=== PATIENT | male | born 1975 | race Asian ===

== ENCOUNTER 2017-08-11 14:30 | Emergency (ER) | payer MEDICAID, OTHER ==
[~2017-08-11] VITALS: Ht 175.3 cm; Wt 74.8 kg
[~2017-08-11 14:30] MED LIST: CO Q-1010 MG PO; FISH OIL300 M1 PO; MULTIVITAMINS1 EAC2 ORAL
--- NOTE | 2017-08-11 15:42 | Diagnostic Imaging Report ---
Indication: Pain Technique: XRAY Ankle Compl Min 3v L Comparison: None Findings: There is no acute fracture. A well-corticated ossific density projecting just. The tip of the medial malleolus may represent sequela of remote trauma or accessory ossicle. The ankle mortise is intact on these nonstressed views. There is no significant ankle joint effusion. No radiopaque foreign body seen. Impression: No acute fracture or dislocation.
--- NOTE | 2017-08-11 15:51 | Emergency Room Report ---
History of Present Illness General Chief Complaint: Pain Present Illness HPI 42 YO Male presents to the ED C/O pain upon walking x 3 month s/p base ball sliding injury.Denies numbness tingling or loss of sensation or gross motor movements of the extremities, incontinence of bowel or bladder. Denies CP, Palpitations, LOC, AMS, dizziness, Changes in Vision, Sensation, paresthesias, or a sudden severe headache. Allergies: Coded Allergies: NO KNOWN DRUG ALLERGIES (Verified Allergy, 07/27/13) Patient History Past Medical History: see triage record Past Surgical History: none Pertinent Family History: none Reviewed Nursing Documentation: PMH: Agreed, PSxH: Agreed Nursing Documentation-PMH Hx Cancer: No Hx Neurological Problems: Yes - HEADACHES Review of Systems All Other Systems: negative except mentioned in HPI Physical Exam Vital Signs Date Time Temp Pulse Resp B/P (MAP) Pulse Ox O2 Delivery O2 Flow Rate FiO2 08/11/17 14:34 97.5 83 20 123/76 99 Room Air Sp02 EP Interpretation: reviewed, normal General Appearance: no apparent distress, alert, GCS 15, non-toxic Head: normocephalic, atraumatic Eyes: bilateral eye normal inspection, bilateral eye PERRL ENT: hearing grossly normal, normal voice Neck: full range of motion Respiratory: lungs clear, normal breath sounds, speaking full sentences Cardiovascular #1: regular rate, rhythm, no edema, normal capillary refill Rectal: deferred Genitourinary: normal inspection Musculoskeletal: back normal, gait/station normal, normal range of motion, tender - TTP to the anterior/dorsum of the left ankle, negative calf squeeze, FROM with pain, NVI, no bruises or obvious deformities. Neurologic: alert, oriented x3, responsive, motor strength/tone normal, sensory intact, speech normal, grossly normal Psychiatric: judgement/insight normal Skin: normal color, no rash, warm/dry, well hydrated Lymphatic: no adenopathy Medical Decision Making PA Attestation Dr. giles is my supervising Physician whom patient management has been discussed with. Diagnostic Impression: Primary Impression: Foot fracture, left Qualified Codes: S92.902A - Unspecified fracture of left foot, initial encounter for closed fracture Additional Impression: Avulsion fracture of calcaneus with delayed healing Qualified Codes: S92.035G - Nondisplaced avulsion fracture of tuberosity of left calcaneus, subsequent encounter for fracture with delayed healing ER Course 42 YO Male presents to the ED C/O 03/11 in severity pain to the left ankle upon walking x 3 months s/p base ball sliding injury. Denies numbness tingling or loss of sensation or gross motor movements of the extremities, incontinence of bowel or bladder. Denies CP, Palpitations, LOC, AMS, dizziness, Changes in Vision, Sensation, paresthesias, or a sudden severe headache. Ddx considered but are not limited to Fracture, dislocation, contusion, Sprain/ Strain/Spasm, avulsion fx. Vital signs: are WNL, pt. is afebrile H&PE are most consistent with musculoskeletal injury will perform imaging to r/ o fractures/dislocations. ORDERS: - X-ray Left Ankle 3 views - POSITIVE FOR OLD FRACTURES to the 1st and second metatarsals, and avulsion of the tibia, no acute fractures, Dislocation , or significant soft tissue injury, per preliminary read in ED, and signed by LAMONT Nielsen, my supervising physician has reviewed, and agrees with my interpretation. ED INTERVENTIONS: -Ortho Cast shoe applied by install technician. Pt. remains neurovascularly intact. -Patient is provided with crutches and instructed on their use --Patient is given copies of his x-rays. Discussed with patient that he needs to followup with edi specialist, and he may even require MRI as well this will be evaluated for by his primary care or edi specialist. DISCHARGE: At this time pt. is stable for d/c to home. Will provide printed patient care instructions, and any necessary prescriptions. Care plan and follow up instructions have been discussed with the patient prior to discharge. Other X-Ray Diagnostic Results Other X-Ray Diagnostic Results : X-Ray ordered: Left Ankle # of Views/Limited Vs Complete: 3 View Indication: Pain EP Interpretation: Yes PA Xray: Interpretation reviewed, by supervising MD, and agrees with findings. Interpretation: no dislocation, no soft tissue swelling, other - no acute fractures, evidence of old fractures with poor healing/malunion. Impression: Other - POSITIVE FOR OLD FRACTURES to the 1st and second metatarsals, and avulsion of the tibia, no acute fractures, Dislocation, or significant soft tissue injury, Electronically Signed by: Elida Nielsen PA-c Last Vital Signs Date Time Temp Pulse Resp B/P (MAP) Pulse Ox O2 Delivery O2 Flow Rate FiO2 1/10/18 14:34 97.5 83 20 123/76 99 Room Air Disposition: HOME, SELF-CARE Condition: Stable Scripts Acetaminophen With Codeine (T#3) (TYLENOL #3 TAB*) Y Tab 1 TAB ORAL Q6HR Y for For Pain, #10 TAB Prov: Elida Nielsen 08/11/17 Ibuprofen* (MOTRIN*) 600 Mg Tablet 600 MG ORAL THREE TIMES A DAY, #30 TAB 0 Refills Prov: Elida Nielsen 08/11/17 Referrals: NOT CHOSEN [facility],REFERRING (PCP) Patient Instructions: Ankle Fracture, [id number], Avulsion Fracture of the Foot Additional Instructions: Take medications as directed. Follow up with a Primary Care Provider For [facility]FERR[facility] in 3-5 days, even if your symptoms have resolved. --Please review list of primary care clinics, if you do not already have a primary care provider MRI may be necessary if symptoms continue, follow up with PCP/ORTHO for this referral. Return sooner to ED if new symptoms occur, or current symptoms become worse. Do not drink alcohol, drive, or operate heavy machinery while taking Tylenol #3 as this may cause drowsiness. - Please note that this Emergency Department Report was dictated using [employer] assistant director technology software, occasionally this can lead to erroneous entry secondary to interpretation by the dictation equipment. Elida Nielsen Aug 11, 2017 15:51
[2017-08-11] MEDS ORDERED: IBUPROFEN600 MG ORAL (15:56)
[2017-08-11] MEDS ORDERED: ACETAMINOPHEN-1 EAC1 ORAL (15:56)
[2017-08-11 16:20] VITALS: BP 120/71
== END 2017-08-11 16:20 | disposition home or self-care (01) ==
LOC: EMR 14:40
DX: S92.002G Unspecified fracture of left calcaneus, subsequent encounter for fracture with delayed healing (principal); Y93.64 Activity, baseball
CPT/HCPCS: 99284

== ENCOUNTER 2018-06-19 22:05 | Emergency (ER) | payer MEDICAID ==
[~2018-06-19] VITALS: Ht 175.3 cm; Wt 74.8 kg
[~2018-06-19 22:05] MED LIST changes: +ACETAMINOPHEN-1 EAC1 ORAL; +IBUPROFEN600 MG ORAL
[2018-06-19 22:20] VITALS: BP 110/82
--- NOTE | 2018-06-19 22:34 | Emergency Room Report ---
History of Present Illness General Chief Complaint: Nausea, Vomiting, and Diarrhea Source: Patient Present Illness HPI Is a 43-year-old male with no past medical history. He presents with chief complaint abdominal pain with nausea vomiting and diarrhea. Onset was 5 days ago. He said he ate some old chicken in the fridge. The next day he had profuse diarrhea while at work and at home. He took some Imodium and I got better. Since then he has nausea and today has been persistent vomiting. His pain is epigastric area. No fever or chills. Vomiting is nonbloody nonbilious. [place] weak and tired. Sleeping a lot. Denies any sick contact. Nothing made it better. Eating and drinking makes it worse. Allergies: Coded Allergies: NO KNOWN DRUG ALLERGIES (Verified Allergy, 07/27/13) Patient History Past Medical History: see triage record, old chart reviewed Past Surgical History: none Pertinent Family History: none Social History: Denies: smoking Immunizations: other Reviewed Nursing Documentation: PMH: Agreed; PSxH: Agreed Nursing Documentation-PMH Past Medical History: No Stated History Hx Cancer: No Hx Neurological Problems: Yes - HEADACHES Review of Systems Constitutional: Reports: weakness Eye: Denies: eye pain, blurred vision ENT: Denies: ear pain, nose congestion, throat swelling Respiratory: Denies: cough, shortness of breath Cardiovascular: Denies: chest pain, palpitations Gastrointestinal: Reports: abdominal pain, diarrhea, nausea, vomiting Musculoskeletal: Denies: back pain, joint pain Skin: Denies: rash Neurological: Denies: headache, numbness Endocrine: Denies: increased thirst, increased urine Hematologic/Lymphatic: Denies: easy bruising All Other Systems: negative except mentioned in HPI Physical Exam Vital Signs Date Time Temp Pulse Resp B/P (MAP) Pulse Ox O2 Delivery O2 Flow Rate FiO2 06/19/18 22:09 98.2 72 16 116/80 99 Room Air vitals normal Sp02 EP Interpretation: reviewed, normal General Appearance: well appearing, no apparent distress, alert Head: normocephalic, atraumatic Eyes: bilateral eye PERRL, bilateral eye EOMI ENT: hearing grossly normal, normal pharynx Neck: full range of motion, supple, no meningismus Respiratory: chest non-tender, lungs clear, normal breath sounds Cardiovascular #1: regular rate, rhythm, no murmur Gastrointestinal: normal bowel sounds, non tender, no mass, no organomegaly, no bruit, non-distended Musculoskeletal: back normal, gait/station normal, normal range of motion Psychiatric: mood/affect normal Skin: warm/dry Medical Decision Making Diagnostic Impression: Primary Impression: Nausea, vomiting, and diarrhea ER Course With nausea vomiting diarrhea. This is most likely an acute gastroenteritis rather than food poisoning since been gone for a few days. He said she doing well. Did not want IV fluid or medication. We'll discharge home. No evidence of an acute abdomen. No evidence of any obstruction. Lab Results Impression labs normal Last Vital Signs Date Time Temp Pulse Resp B/P (MAP) Pulse Ox O2 Delivery O2 Flow Rate FiO2 06/19/18 22:09 98.2 72 16 116/80 99 Room Air Status: improved Disposition: HOME, SELF-CARE Condition: Stable Scripts Ondansetron (Zofran) 4 Mg Tablet 4 MG ORAL Q6H PRN for Nausea & Vomiting, #10 TAB 0 Refills Prov: Juan C Stevens MD 06/19/18 Referrals: [facility],REFERRING (PCP) Additional Instructions: Advance diet slowly. Increase fluid. Follow-up with your Dr. in 2 to 3 days if not better. Return if worse. Juan C Stevens MD Jun 19, 2018 22:34
[2018-06-19] MEDS ORDERED: Ketorolac 30mg Inj IV ONE (22:45)
[2018-06-19 22:57] LABS: APPEARANCE,URINE CLEAR; BILIRUBIN, URINE NEGATIVE (NEGATIVE); COLOR,URINE PALE YELLOW; GLUCOSE, URINE (UA) NEGATIVE (NEGATIVE); KETONES,URINE NEGATIVE (NEGATIVE); LEUKOCYTE ESTERASE ,URINE NEGATIVE (NEGATIVE); NITRITE,URINE NEGATIVE (NEGATIVE); PH,URINE 7 (4.5-8.0); PROTEIN,URINE NEGATIVE (NEGATIVE); UROBILINOGEN,URINE NORMAL MG/DL (0.0-1.0)
[2018-06-19 22:58] LABS: BASOPHILS % (AUTO) 0.7 % (0.0-2.0); EOSINOPHILS % (AUTO) 1.3 % (0.0-3.0); HEMATOCRIT 40.6 % (42.0-52.0); HEMOGLOBIN 14.8 G/DL (14.2-18.0); MEAN CORPUSCULAR VOLUME 90 FL (80-99); NEUTROPHILS % (AUTO) 65.1 % (45.0-75.0); PLATELET COUNT 285 K/UL (150-450); RED BLOOD COUNT 4.51 M/UL (4.70-6.10); RED CELL DISTRIBUTION WIDTH 10.5 % (11.6-14.8); WHITE BLOOD COUNT 7.8 K/UL (4.8-10.8)
[2018-06-19 23:08] LABS: ANION GAP 7 mmol/L (5-15); BLOOD UREA NITROGEN 12 mg/dL (7-18); CALCIUM 8.8 MG/DL (8.5-10.1); CARBON DIOXIDE 30 MMOL/L (21-32); CHLORIDE 102 MMOL/L (98-107); CREATININE 0.9 MG/DL (0.55-1.30); POTASSIUM 3.7 MMOL/L (3.5-5.1); SODIUM 139 MMOL/L (136-145)
[2018-06-19 23:13] LABS: ALANINE AMINOTRANSFERASE 58 U/L (12-78); ALBUMIN 3.8 G/DL (3.4-5.0); ASPARTATE AMINO TRANSFERASE 29 U/L (15-37); BILIRUBIN,TOTAL 0.7 MG/DL (0.2-1.0)
[2018-06-19 23:14] LABS: ALBUMIN/GLOBULIN RATIO 0.9 (1.0-2.7); ALKALINE PHOSPHATASE 68 U/L (46-116)
[2018-06-19 23:43] VITALS: BP 110/59
[2018-06-19 23:44] VITALS: BP 110/53
[2018-06-19] MEDS ORDERED: ZOFRAN4 MG ORAL (23:44)
== END 2018-06-19 23:52 | disposition home or self-care (01) ==
LOC: EMR 22:28
DX: R11.2 Nausea with vomiting, unspecified (principal); R19.7 Diarrhea, unspecified; R10.13 Epigastric pain
CPT/HCPCS: 36415; 80053; 81003; 83690; 85025; 99283; J2405

== ENCOUNTER 2019-09-17 23:24 | Emergency (ER) | payer SELFPAY ==
[~2019-09-17] VITALS: Ht 172.7 cm; Wt 74.8 kg
[~2019-09-17 23:24] MED LIST changes: +ZOFRAN4 MG ORAL
[2019-09-17 23:50] VITALS: BP 129/81
--- NOTE | 2019-09-17 23:50 | NUR ---
ED Nurse Note: Pt walke din to ED c/o left calf pain started today at 0900. Stated that he was playing baseball and running at onset of pain. Pt was able to walk but with limitation.
[2019-09-18] MEDS ORDERED: IBUPROFEN600 MG ORAL (00:45)
[2019-09-18 00:50] VITALS: BP 129/81
--- NOTE | 2019-09-18 00:50 | NUR ---
ED Nurse Note: Pt cleared by ERMD for discharge. DC instructions/prescription was given and explained to pt and verbalized understanding of teachings. All medical deviecs such as ID band removed. Pt is AAO x4, ambulatory and left with all personal belongings. Crutches provided.
--- NOTE | 2019-09-18 04:32 | Emergency Room Report ---
History of Present Illness General Chief Complaint: Pain Source: Patient Present Illness HPI 44-year-old male presents ED complaining of left calf pain. Started yesterday morning while he played baseball. Days while running he felt a pop in his left calf. States he has been having intense pain since. 9 out of 10, throbbing, nonradiating. Has been icing it. Has difficulty walking. Denies any other injuries. No other aggravating relieving factors. Denies any other associated symptoms Allergies: Coded Allergies: NO KNOWN DRUG ALLERGIES (Verified Allergy, 07/27/13) Patient History Past Medical History: none Past Surgical History: none Pertinent Family History: none Social History: Denies: smoking, alcohol use, drug use Immunizations: UTD Reviewed Nursing Documentation: PMH: Agreed; PSxH: Agreed Nursing Documentation-PMH Past Medical History: No History, Except For Hx Cancer: No Hx Neurological Problems: Yes - HEADACHES Review of Systems All Other Systems: negative except mentioned in HPI Physical Exam Vital Signs Date Time Temp Pulse Resp B/P (MAP) Pulse Ox O2 Delivery O2 Flow Rate FiO2 09/17/19 23:45 97.9 65 14 129/81 (97) 98 Room Air Sp02 EP Interpretation: reviewed, normal General Appearance: no apparent distress, alert, GCS 15, non-toxic Head: normocephalic Eyes: bilateral eye normal inspection, bilateral eye PERRL ENT: normal ENT inspection Neck: normal inspection Respiratory: normal inspection Cardiovascular #1: normal inspection Gastrointestinal: normal inspection Rectal: deferred Genitourinary: no CVA tenderness Musculoskeletal: calf tenderness - LEFT, other - negative simon sign Neurologic: alert, motor strength/tone normal, oriented x3, sensory intact, responsive, speech normal Psychiatric: normal inspection Skin: no rash Lymphatic: normal inspection Procedures Splinting Splinting : Consent: Verbal Pre-Made Type: crutches Pre-Proc Neuro Vasc Exam: normal Post-Proc Neuro Vasc Exam: normal Patient Tolerated: Well Complications: None Medical Decision Making Diagnostic Impression: Primary Impression: Injury of calf ER Course Hospital Course 44 yo M presents with calf pain s/p running Differential diagnoses include: Fracture, dislocation, sprain, contusion, bursitis Clinical course Patient placed on stretcher. After initial history, physical exam reveals a male in no acute distress. On exam there is tenderness to the left calf. Swollen compared to the right. Negative Calvin test. No bony tenderness. Distal pulses intact. Sensations intact I discussed findings with patient. No sign of Achilles injury. Likely muscular. Given Motrin in ED. Given crutches. Will discharge to home. Nonweightbearing. I will provide Ortho referrals Diagnosis - injury of calf stable and discharged to home with prescription for Motrin. Followup with PMD/ ortho. Return to ED if symptoms recur or worsen Last Vital Signs Date Time Temp Pulse Resp B/P (MAP) Pulse Ox O2 Delivery O2 Flow Rate FiO2 09/18/19 00:50 97.9 65 14 129/81 98 Room Air Status: improved Disposition: HOME, SELF-CARE Condition: Stable Scripts Ibuprofen* (MOTRIN*) 600 Mg Tablet 600 MG ORAL Q8H PRN for For Pain, #30 TAB 0 Refills Prov: Jack Ugalde MD 09/18/19 Referrals: Earle Wills MD NOT CHOSEN [facility]/,REFERRING (PCP) Patient Instructions: Muscle Strain, [id number] Jack Ugalde MD Sep 18, 2019 04:32
== END 2019-09-18 00:50 | disposition home or self-care (01) ==
LOC: EMR 09-18 00:50
DX: S89.92XA Unspecified injury of left lower leg, initial encounter (principal); X58.XXXA Exposure to other specified factors, initial encounter; Y93.64 Activity, baseball; Y92.9 Unspecified place or not applicable
CPT/HCPCS: 99282